=== PATIENT | male | born 1990 | race Two or more races ===

== ENCOUNTER 2016-07-20 11:21 | Emergency (ER) | payer MEDICAID ==
[~2016-07-20] VITALS: Ht 165.1 cm; Wt 56.7 kg
[~2016-07-20 11:21] MED LIST: AMOXICILLI200 MG/5 M PO; ARTIFICIAL TEAR15 ML BOTH EYES; CLINDAMYCIN HC300 MG ORAL; FLAGYL500 MG ORAL; IBUPROFEN600 MG ORAL; NKM; VIBRAMYCIN100 MG ORAL
[2016-07-20] MEDS ORDERED: NKM (11:28)
[2016-07-20 11:38] VITALS: BP 115/77
[2016-07-20] MEDS ORDERED: FLUCONAZOLE100 MG ORAL (12:09)
[2016-07-20 12:16] VITALS: BP 115/77
--- NOTE | 2016-07-20 14:03 | Emergency Room Report ---
History of Present Illness General Chief Complaint: Skin Rash/Abscess Source: Patient Present Illness HPI 26-year-old male presents ED for evaluation of rash to penis times one week. States it is very itchy. Denies pain. Denies any discharge. States he is sexually active with one partner. Denies any testicular pain. Denies any fevers or chills. No aggravating or relieving factors. Denies any other associated symptoms Allergies: Coded Allergies: No Known Allergies (Unverified , 11/28/12) Patient History Past Medical History: none Past Surgical History: none Pertinent Family History: none Social History: Denies: alcohol use, drug use, smoking Immunizations: UTD Reviewed Nursing Documentation: PMH: Agreed, PSxH: Agreed Nursing Documentation-PMH Past Medical History: No Stated History Review of Systems All Other Systems: negative except mentioned in HPI Physical Exam Vital Signs Date Time Temp Pulse Resp B/P Pulse Ox O2 Delivery O2 Flow Rate FiO2 07/20/16 11:25 97.7 60 16 115/77 100 Room Air Sp02 EP Interpretation: reviewed, normal General Appearance: no apparent distress, alert, GCS 15, non-toxic Head: normocephalic Eyes: bilateral eye PERRL, bilateral eye normal inspection ENT: normal ENT inspection Neck: normal inspection Respiratory: normal inspection Cardiovascular #1: normal inspection Gastrointestinal: normal inspection Rectal: deferred Genitourinary: no CVA tenderness, scrotum normal, other - white specks noted on penile head. pruritic. some erythema noted. no urethral discharge Musculoskeletal: normal inspection Neurologic: alert, oriented x3, responsive, motor strength/tone normal, sensory intact, speech normal Psychiatric: judgement/insight normal, memory normal, mood/affect normal, no suicidal/homicidal ideation Skin: normal color, no rash, warm/dry, well hydrated Lymphatic: normal inspection, no adenopathy Medical Decision Making Diagnostic Impression: Primary Impression: Candidiasis of penis ER Course Hospital Course 26-year-old male presents to ED with rash to penis Differential diagnoses include: Cellulitis, dermatitis, STD, abscess Clinical course Patient placed on stretcher. After initial history, physical exam reveals a young male in no acute distress. On exam there is some evidence of small white specks to the penile head. Some surrounding erythema. No urethral discharge or irritation noted. Clinically consistent with candidiasis. We will treat with antifungal medication. no evidence of STD Diagnosis - candidiasis of penis stable and discharged to home with prescription for Diflucan. Instructed to followup with PMD. Instructed return to ED if symptoms recur or worsen Last Vital Signs Date Time Temp Pulse Resp B/P Pulse Ox O2 Delivery O2 Flow Rate FiO2 07/20/16 12:16 97.7 65 16 115/77 100 Room Air Status: improved Disposition: HOME, SELF-CARE Condition: Stable Scripts Fluconazole (FLUCONAZOLE) 100 Mg Tablet 100 MG ORAL DAILY, #7 TAB 0 Refills Prov: KIRSTIN THAYER M.D. 07/20/16 Referrals: NOT CHOSEN ABRAHAM/,REFERRING (PCP) Patient Instructions: Pruritus KIRSTIN THAYER M.D. Jul 20, 2016 14:03
== END 2016-07-20 12:18 | disposition home or self-care (01) ==
LOC: EMR 12:08
DX: B37.49 Other urogenital candidiasis (principal)
CPT/HCPCS: 99283